=== PATIENT | male | born 2000 | race Caucasian/White ===

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

== ENCOUNTER 2021-05-07 08:00 | Outpatient (CLI) | payer OTHER | END 2021-05-07 23:59 | LOC: LAB.N 08:00 | PROVIDERS: ATTEND Family Medicine | DX: R07.0 Pain in throat (principal); R09.81 Nasal congestion; Z20.822 Contact with and (suspected) exposure to COVID-19 | CPT/HCPCS: 87070; 87275; 87276 ==